=== PATIENT | male | born 1985 | race Caucasian/White ===

== ENCOUNTER 2017-07-21 18:35 | Emergency (ER) | payer SELFPAY ==
[~2017-07-21] VITALS: Ht 170.2 cm; Wt 85.6 kg
[2017-07-21 19:11] VITALS: Ht 170.2 cm; Wt 85.6 kg
--- NOTE | 2017-07-21 19:58 | ERD ---
ER Documentation Chief Complaint Chief Complaint pt reports fall while skateboarding and LFA pain and bruising HPI Is a 32-year-old male presenting to the emergency department complaining of pain and bruising in the left distal dorsal forearm radiating to the wrist status post fall on outstretched hand while skateboarding yesterday. Patient admits to full range of motion however he has pain with range of motion of the wrist. He denies taking any medications for this ROS All systems reviewed and are negative except as per history of present illness. Medications Home Meds Active Scripts Ibuprofen* (Ibuprofen*) 400 Mg Tablet, 400 MG PO Q6H Y for PAIN, #30 TAB Prov:LILIAN GOMEZ PA-C 07/21/17 Allergies Allergies: Coded Allergies: No Known Allergy (Unverified , 07/21/17) PMhx/Soc Medical and Surgical Hx: pt denies Medical Hx, pt denies Surgical Hx Hx Alcohol Use: Yes Hx Substance Use: Yes (MARIJUANA) Hx Tobacco Use: No Smoking Status: Never smoker Physical Exam Vitals Vital Signs Date Time Temp Pulse Resp B/P Pulse Ox O2 Delivery O2 Flow Rate FiO2 07/21/17 19:11 98.6 66 16 134/90 98 Physical Exam General: WD/WN, in no apparent distress, non-toxic appearing HENT: NC/AT Eyes: Conjunctiva normal Neck: Supple Pulm: Clear to auscultation, normal labored breathing; no wheezing/rales/ rhonchi heard CV: Good capillary refill GI: Non-distended, no guarding Back: No masses Ext: TTP left distal forearm with mild ecchymosis and swelling, full range of motion of elbow and wrist. +2 radial pulses Neuro: Moves on all fours Skin: intact Psych: Normal mood Procedures/MDM This is a 32-year-old male presents with pain and bruising in the left distal dorsal forearm that radiates to the wrist status post fall on outstretched hand while skateboarding yesterday. likely sprain. An x-ray of the left forearm and wrist were done and did not show any evidence of fracture or dislocation. Patient is neurovascular intact to be discharged home with return precautions. Ibuprofen was provided. Patient was placed in Eric bandage Departure Diagnosis: Primary Impression: Forearm sprain Condition: Stable LILIAN GOMEZ PA-C Jul 21, 2017 19:58
--- NOTE | 2017-07-21 21:16 | RADRPT ---
PROCEDURE: XR Wrist. CLINICAL INDICATION: Pain. TECHNIQUE: Three views of the left wrist. COMPARISON: None available. FINDINGS: No fracture or dislocation is identified. The joint spaces are preserved. There is no significant soft tissue swelling. IMPRESSION: 1. No fracture or dislocation of the left wrist. RPTAT: HTAR .John Black MD, Date Time Electronically viewed and signed by .John Black MD, on 07/21/2017 21:16 .R/
--- NOTE | 2017-07-21 21:19 | RADRPT ---
PROCEDURE: XR Forearm. CLINICAL INDICATION: Pain. TECHNIQUE: AP and lateral views of the left forearm. COMPARISON: None available. FINDINGS: No fracture or dislocation is identified. The joint spaces are preserved. There is no significant soft tissue swelling. IMPRESSION: 1. No fracture or dislocation of the left forearm. RPTAT: HTAR .John Black MD, MD Date Time Electronically viewed and signed by .John Black MD, on 07/21/2017 21:18 .R/
[2017-07-21] MEDS ORDERED: IBUP400T22 PO (21:21)
[2017-07-21 21:30] VITALS: BP 144/86; PULSE 72; RESP 16; TEMP 98.3
== END 2017-07-21 21:45 | disposition home or self-care (01) ==
LOC: FTE 18:35
DX: S53.402A Unspecified sprain of left elbow, initial encounter (principal); R40.2252 Coma scale, best verbal response, oriented, at arrival to emergency department; R40.2142 Coma scale, eyes open, spontaneous, at arrival to emergency department; R40.2362 Coma scale, best motor response, obeys commands, at arrival to emergency department; V00.131A Fall from skateboard, initial encounter; Y92.9 Unspecified place or not applicable
CPT/HCPCS: 73090

== ENCOUNTER 2018-10-29 05:49 | Emergency (ER) | payer OTHER ==
[~2018-10-29] VITALS: Wt 75.0 kg
[~2018-10-29 05:49] MED LIST: IBUP-1541 PO
[2018-10-29 05:54] VITALS: BP 126/65; PULSE 78; RESP 19
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
[2018-10-29] MEDS ORDERED: IBUP800T48 PO (06:58)
== END 2018-10-29 08:03 | disposition home or self-care (01) ==
LOC: E/R 05:49
DX: S13.4XXA Sprain of ligaments of cervical spine, initial encounter (principal); S06.0X1A Concussion with loss of consciousness of 30 minutes or less, initial encounter; V49.40XA Driver injured in collision with unspecified motor vehicles in traffic accident, initial encounter
CPT/HCPCS: 70450; 71045; 72040